=== PATIENT | female | born 1980 | race African-American/Black ===

== ENCOUNTER 2016-11-11 06:06 | Day surgery (SDC) | payer OTHER | END 2016-11-11 23:59 | disposition home or self-care (01) | LOC: MSC 06:06 | PROVIDERS: Surgery Plastic and Reconstructive Surgery | PROC: 0H0V0JZ Alteration of Bilateral Breast with Synthetic Substitute, Open Approach (ICD-10-PCS; principal; 2016-11-11 07:15) | DX: Z41.1 Encounter for cosmetic surgery (principal); Z98.890 Other specified postprocedural states; Z98.891 History of uterine scar from previous surgery | CPT/HCPCS: 84703; A9270-GY; J0690; J1580; J2250; J2270; J2405; J2710; J3010 ==